=== PATIENT | female | born 1945 | race Caucasian/White ===

== ENCOUNTER 2020-08-08 20:00 | Emergency (ER) | payer MEDICARE, SELFPAY ==
--- NOTE | ~2020-08-08 | XR_ITS ---
EXAMINATION: XR CHEST CLINICAL INFORMATION: SOB.] The past COMPARISON: None TECHNIQUE: Frontal view of the chest was obtained. FINDINGS: The lungs are well-expanded and clear of acute pneumonic process. Heart size and pulmonary vascularity is normal. There is a partial right shoulder arthroplasty XR/XR chest 1V IMPRESSION: No acute cardiopulmonary process seen
[2020-08-08 20:24] VITALS: BP 117/68; PULSE 77; RESP 16; TEMP 36.7; O2SAT 97; BMI 23.9
[2020-08-08 20:51] LABS: COVID-19 Test Negative (Negative)
--- NOTE | 2020-08-08 22:15 | ED_ITS ---
HPI - SOB/Dyspnea General Chief Complaint: Dyspnea Stated Complaint: Sob Time Seen by Provider: 08/08/20 22:09 Source: patient Mode of arrival: ambulatory Limitations: no limitations History of Present Illness HPI Narrative: Patient had COVID in last summer received both COVID vaccine complaining of shortness of breath fatigue feeling level breathing off and on especially for last few days patient was tested for COVID again which was negative patient is saturating 97% at room air patient is an ex-smoker used to use inhaler off and on. No chest pain no fever no chills Related Data Previous Rx's Medication Instructions Recorded albuterol sulfate [ProAir HFA] 2 puff INHALATION Q6H PRN #8.5 g 08/08/20 Allergies Allergy/AdvReac Type Severity Reaction Status Date / Time hydromorphone [From DILAUDID] AdvReac Intermediate HALLUCINATI Unverified 01/11/20 15:53 ONS Review of Systems Review of Systems: Constitutional : No Weight loss, No Fever, No Chills ENT/Mouth : No sore throat, No Rhinorrhea Eyes: No Eye Pain, No Swelling Cardiovascular : No Chest Pain, no palpitations Respiratory : No Cough, No Sputum, + shortness of breath Gastrointestinal : no Nausea, No Vomiting, No Diarrhea, No abdominal Pain, no black stools Genitourinary : No Dysuria, No Urinary Frequency Musculoskeletal : No joint pain, No Myalgias, No Joint Swelling Skin : No Skin Lesions, No rash Neuro : No Weakness, No Numbness, No Dizziness, No Headache Psych : No Anxiety/Panic, No Depression Heme/Lymph: No Bruising, No Lymphadenopathy Endocrine : No Polyuria, No Polydipsia All other systems reviewed and are negative [facility] Past Medical History Medical History Anxiety Depression History of open sigmoidectomy Social History Social History Advance Directives: No Advance Directives Information Provided: No Physical Exam Vital Signs: Vital Signs: Last Vital Signs Temp 98.0 F 08/08/20 20:24 Pulse 77 08/08/20 20:24 Resp 16 08/08/20 20:24 BP 117/68 08/08/20 20:24 Pulse Ox 97 08/08/20 20:24 Body Mass Index 23.9 Appearance: Alert. Oriented X3. No acute distress. Anxious Eyes: Pupils equal, round and reactive to light. ENT: Pharynx normal. Neck: Normal inspection. Neck supple. CVS: Normal heart rate and rhythm. Pulses normal. Respiratory: No respiratory distress. Breath sounds normal. Abdomen: Soft and nontender. Bowel sounds are present, no mass palpable, no CVA tenderness Skin: Skin warm and dry. Normal skin color. Normal skin turgor. Extremities: No lower extremity edema. No calf tenderness Neuro: Oriented X 3. No motor deficit. No sensory deficit. 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 Lab Data Attestation: I reviewed the patient's lab results. Labs: Lab Results 08/08/20 Range/Units 20:26 COVID-19 ([facility]AK) Negative (Negative) COVID-19 Clin Com See Note Discharge Plan Discharge Clinical Impression: Chronic bronchitis Qualifiers: Chronic bronchitis type: simple Qualified Code(s): J41.0 - Simple chronic bronchitis Patient Disposition: Home, Self-Care Instructions: Chronic Bronchitis (ED) Additional Instructions: Use albuterol inhaler as needed every 6 hours for shortness of breath Follow-up with research test engine operator Prescriptions: New albuterol sulfate [ProAir HFA] 90 mcg/actuation HFA aerosol inhaler 2 puff inhalation Q6H PRN (Reason: shortness of breath or wheezing) Qty: 8.5 RF: 0 Referrals: Tree Pham MD [Physician] - 1 week
== END 2020-08-08 23:08 | disposition home or self-care (01) ==
PROVIDERS: Emergency Provider Internal Medicine; PCP Nurse Practitioner Adult Health
DX: J41.0 Simple chronic bronchitis (principal); R06.00 Dyspnea, unspecified; Z86.16 Personal history of COVID-19; Z20.822 Contact with and (suspected) exposure to COVID-19
CPT/HCPCS: 36415; 71045; 87635; 99282; 99283

== ENCOUNTER → 2020-08-20 14:16 | Outpatient (BNVA) | payer MEDICARE, SELFPAY | PROVIDERS: PCP Nurse Practitioner Adult Health; Visit Provider Internal Medicine | DX: R05 Cough (principal); R06.00 Dyspnea, unspecified; B94.8 Sequelae of other specified infectious and parasitic diseases | CPT/HCPCS: 99202 ==

== ENCOUNTER 2020-09-04 07:49 | Outpatient (REF) | payer MEDICARE, SELFPAY ==
--- NOTE | ~2020-09-04 | CT_ITS ---
EXAMINATION: CT CHEST WITHOUT CONTRAST CLINICAL INFORMATION: Sequela of other specified infectious parasitic infections COMPARISON: Previous chest x-rays most recent July 2020 TECHNIQUE: Multidetector volumetric CT imaging of the chest was done. Axial MIP volume rendering provided. Sagittal and coronal reformatted images were obtained. This CT examination was performed using dose optimization techniques as appropriate, variously including the following: *Automated exposure control *Adjustment of mA and/or kV according to patient size (this includes techniques or standardized protocols for targeted exams where dose is matched to indication/reason for exam; i.e. 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 There is a 2 mm peripheral or subpleural right upper lobe nodule along the mediastinal surface axial image 165 series 4. There is endobronchial soft tissue opacification and scattered peribronchial nodules or tree-in-bud appearance in the left lower lobe for example axial image 210 series 4. There is a 3 mm right middle lobe nodule also probably representing endobronchial soft tissue opacification axial image 221 series 4, in the left lower lobe axial image 299 series 4. There is a 2 mm calcified left lower lobe nodule axial image 398 and 4 14 series 4. MEDIASTINUM: The heart does not appear enlarged. There is significant coronary artery calcification. There is no pericardial effusion. The thoracic aorta is normal in caliber. There are no enlarged hilar or mediastinal lymph nodes. PLEURA: There is no pleural effusion. No pleural mass or thickening. AXILLA: No chest wall mass or enlarged axillary lymph nodes are seen. UPPER ABDOMEN: Unremarkable. OSSEOUS STRUCTURES: There are degenerative changes of the spine. CT/CT chest wo con IMPRESSION: No evidence of pneumonia. Small calcified and noncalcified pulmonary nodules. Evidence of mild airways disease, greatest in the left lower lobe. Significant coronary artery calcification.
== END 2020-09-04 07:50 | disposition home or self-care (01) ==
LOC: HO.CT 07:49
PROVIDERS: Visit Provider Internal Medicine
DX: R05 Cough (principal); R06.00 Dyspnea, unspecified; B94.8 Sequelae of other specified infectious and parasitic diseases
CPT/HCPCS: 71250

== ENCOUNTER 2020-09-11 09:55 | Outpatient (REF) | payer MEDICARE, SELFPAY ==
--- NOTE | 2020-09-11 11:06 | PFT_ITS ---
Forced vital capacity FEV1, BDA89-77 are all normal. MVV slightly reduced. After bronchodilator therapy, there is no significant change. Total lung capacity and residual volume normal. Diffusion capacity normal. CONCLUSION: Normal pulmonary function test. No evidence of obstructive or restrictive pulmonary disorder. Denice Manning MD MSB/MODL / [id number]
== END 2020-09-11 09:56 | disposition home or self-care (01) ==
LOC: HO.RESP 09:55
PROVIDERS: PCP Nurse Practitioner Adult Health; Visit Provider Internal Medicine
DX: R05 Cough (principal); R06.00 Dyspnea, unspecified; B94.8 Sequelae of other specified infectious and parasitic diseases
CPT/HCPCS: 94060; 94727; 94729

== ENCOUNTER → 2020-09-18 10:08 | Outpatient (BNVA) | payer MEDICARE, SELFPAY | PROVIDERS: PCP Nurse Practitioner Adult Health; Visit Provider Internal Medicine | DX: B94.8 Sequelae of other specified infectious and parasitic diseases (principal); R06.00 Dyspnea, unspecified; R05 Cough | CPT/HCPCS: 99212 ==

== ENCOUNTER → 2020-10-23 11:00 | Outpatient (BNVA) | payer MEDICARE, SELFPAY | PROVIDERS: PCP Nurse Practitioner Adult Health; Referring Provider Nurse Practitioner Adult Health; Visit Provider Internal Medicine ==

== ENCOUNTER 2020-10-31 06:46 | Outpatient (REF) | payer MEDICARE, SELFPAY ==
[2020-10-31 08:33] LABS: Alanine Aminotransferase 16 U/L (0-31); Albumin Level 4.1 g/dL (3.5-5.0); Alkaline Phosphatase 87 U/L (39-117); Aspartate Amino Transferase 21 U/L (5-31); Bilirubin Direct 0.2 mg/dL (0.0-0.5); Bilirubin Total 0.6 mg/dL (0.0-1.0); Cholesterol 198 mg/dL; HDL Cholesterol 56 mg/dL; LDL Cholesterol Calculated 127 mg/dl; Total Protein 6.2 g/dL (6.5-8.0); Triglycerides 79 mg/dL
== END 2020-10-31 06:47 | disposition home or self-care (01) ==
LOC: HO.LAB 06:46
PROVIDERS: PCP Nurse Practitioner Adult Health; Visit Provider Internal Medicine
DX: I25.10 Atherosclerotic heart disease of native coronary artery without angina pectoris (principal); E78.5 Hyperlipidemia, unspecified
CPT/HCPCS: 36415; 80061; 80076

== ENCOUNTER → 2020-11-13 07:39 | Outpatient (REF) | payer MEDICARE, SELFPAY ==
--- NOTE | ~2020-11-13 | NM_ITS ---
Exercise Myocardial perfusion study Indication: Shortness of breath evaluate for myocardial ischemia Technique: The patient was brought in for an exercise perfusion study on 11/13/2020. Patient performed exercise as per Mika protocol and was injected 25 mCi of sestamibi was given intravenously one target HR was achieved. Images were obtained using the SPECT gamma camera interlaced with the gating device. Images were obtained in supine position. Resting perfusion study was performed on 11/15/2020. Patient was administered 25 mCi of sestamibi intravenously at rest. Images were then obtained in supine position. Images obtained with and without CT attenuation. Total DLP 84 mGy-cm. Images were processed with the software and compared side to side in short axis, horizontal long axis and vertical long axis views. Findings: The stress perfusion study showed both attenuated corrected as well as nonattenuated images show normal uptake of radiotracer in all segments of LV myocardium.. The gated study shows normal LV systolic function with calculated LVEF of 67%. LV cavity is normal in in size. The gated study shows normal systolic wall thickening and contraction of all segments. There is no transient ischemic dilation. Resting study is suboptimal due to intense subdiaphragmatic uptake interfering with inferior wall uptake and shows nonattenuated images show mildly reduced uptake in the apex of the LV myocardium. Attenuation corrected images show moderately reduced uptake in the apex of the LV myocardium. Gating at rest reveals normal systolic wall motion with ejection fraction at 57%. The findings are consistent with normal myocardial perfusion. NM/NM cardiolite stress test Impression: 1. Normal myocardial perfusion 2. Gated LVEF is 67% 3. Transient ischemic dilatation not present Stress EKG is negative for ischemia
--- NOTE | 2020-11-13 07:43 | CA_ITS ---
Transthoracic Echocardiogram Patient (Last, First, Middle): Delicia Coelho E Gender: Female Date of : 1945 Age: 75 Procedure Date: 11/13/2020 Procedure Type: Transthoracic Echocardiogram Location: OP Height: 157.48 cm Weight: 60.78 kg BSA: 1.61 m2 Heart Rate: bpm BP: 100 / 54 mmHg Furniture Dipper: Eddie MD: Omari Suggs MD Vp Product: Floyd Allen MD Symptoms: I25.10 - Atherosclerotic heart disease of [place] coronary... Study Quality: Good ECG Rhythm: Sinus Conclusions: - 1. Normal LV systolic function with impaired relaxation filling pattern 2. Trivial aortic regurgitation 3. Mildly dilated left atrium 4. Normal RV systolic pressure 5. No pericardial effusion Findings Left Ventricle Normal left ventricular size, thickness, and systolic function. The visually estimated ejection fraction is between 55-60%. Spectral Doppler is indicative of an impaired relaxation filling pattern. E/E prime ratio is between 8 and 15 consistent with indeterminate filling pressures. Right Ventricle Normal right ventricular cavity size and systolic function. Atria The left atrium is mildly dilated. There is no evidence of interatrial shunt. The right atrium is normal in size. Aortic Valve Normal aortic valve structure and function. There is no aortic valve stenosis. There is trace (trivial) aortic valve regurgitation. Mitral Valve Normal mitral valve structure and function. There is no mitral valve regurgitation. There is no mitral valve stenosis. Pulmonic Valve The pulmonic valve is likely normal. Tricuspid Valve Normal tricuspid valve structure. There is trace tricuspid valve regurgitation. The right ventricular systolic pressure is normal. Normal right atrial pressure. There is no evidence of pulmonary hypertension. Great Vessels All visible segments of the aorta are normal in size. The pulmonary artery was not well visualized. Venous The inferior vena cava is normal in size and collapses greater than 50% with inspiration. Pericardium/Pleural There is no evidence of pericardial effusion. Prior Study Comparison No prior study available for comparison. Measurements 2D Linear Measurements RVIDd: 3.04 RVIDd Index: 1.89 IVSd: 0.93 0.6-0.9/0.6-1.0 cm LVIDd: 4.61 3.9-5.3/4.2-5.9 cm LVIDd Index: 2.86 2.4-3.2/2.2-3.1 cm/m2 LVIDs: 2.70 2.0-3.6 cm LVPWd: 0.89 0.7-1.1 cm Ao Root: 2.80 2.1-3.5 cm LA Diam: 3.30 2.7-3.8/3.0-4.0 cm LAIDs Index: 2.05 1.5-2.3 cm/m2 LV Mass: 175.49 67-162/88-224 g LV Mass Index: 109.00 43-95/49-115 g/m2 LVOT Diam: 2.00 3.0+(-)1.3 cm 2D Systolic Function EF 4C: 55.50 >55% EF 2C: 50.30 >55% Mitral Valve MV Pk E: 0.67 MV PK A: 0.77 MV Decel Time: 315.00 E/A: 0.90 E'Lateral: 7.83 E'Medial: 6.74 E/E' Med: 10.00 E/E' Lat: 8.60 Aortic Valve AoV Pk Natanael: 1.41 AoV Mn Natanael: 1.06 AoV VTI: 0.35 AoV Pk Grad: 8.00 Aov Mn Grad: 5.00 ITALIA Cont.VTI: 1.99 LVOT LVOT Pk Natanael: 1.06 LVOT Mn Natanael: 0.73 LVOT VTI: 0.22 LVOT Pk Grad: 4.00 LVOT Mn Grad: 3.00 LVOT Diam: 2.00 LVOT Area: 3.14 Diastolic Function MV Pk E: 0.67 MV Pk A: 0.77 E/A: 0.90 E'Medial: 6.74 E/E' Med: 10.00 E' Laterial: 7.83 E/E' Lat: 8.60 Tricuspid Valve TR Pk Natanael: 2.23 TR Pk Grad: 20.00 RA Press: 3.00 RVSP: 23.00 Great Vessels Aorta Ao Root-2D: 2.80 2.0-3.7 cm Ao Asc: 2.90 2.1-3.4 cm Ao Arch: 2.90 Updated in Other Vendor System with Status of Final Floyd Allen MD electronically signed on 11/15/2020 11:36:55 AM with status of Final
--- NOTE | 2020-11-13 08:30 | CA_ITS ---
Acquisition Time: 2020-11-13 08:34:57 Total Exercise Time: 00:06:17 Test Indications: Dyspnea Medications: SERTRALINE LORAZAPAM Protocol: ARA Max HR: 126 BPM 86% of Pred: 146 BPM Max BP: 138/056 mmHG Max Work Load: 7.4 METS Exercise stress test with exercise 6 min 17sec of Ara protocol, without anginal symptoms, with isolated PAC, with normotensive response to exercise, with nonspecific ST abnormality, without EKG changes meeting criteria for ischemia. Nuclear images pending. Test reviewed with Dr Allen. Referred By: Omari Suggs Overread By: GREYSON MELENDEZ
== END ==
LOC: HO.CARD 07:39
PROVIDERS: Visit Provider Internal Medicine
DX: I25.10 Atherosclerotic heart disease of native coronary artery without angina pectoris (principal); R06.02 Shortness of breath; Z87.891 Personal history of nicotine dependence
CPT/HCPCS: 78452; 93005; 93017; 93306; 99202; A9500

== ENCOUNTER → 2020-11-19 13:29 | Outpatient (BNVA) | payer MEDICARE, SELFPAY | PROVIDERS: PCP Nurse Practitioner Adult Health; Visit Provider Internal Medicine | DX: I25.10 Atherosclerotic heart disease of native coronary artery without angina pectoris (principal); I95.9 Hypotension, unspecified; R06.02 Shortness of breath | CPT/HCPCS: 99212 ==

== ENCOUNTER 2020-12-26 10:43 | Outpatient (REF) | payer MEDICARE, SELFPAY ==
[2020-12-26 11:39] LABS: COVID-19 Test Negative (Negative)
== END 2020-12-26 10:44 | disposition home or self-care (01) ==
LOC: HO.LAB 10:43
PROVIDERS: PCP Nurse Practitioner Adult Health; Visit Provider Internal Medicine
DX: Z20.822 Contact with and (suspected) exposure to COVID-19 (principal)
CPT/HCPCS: 36415; 87635; C9803

== ENCOUNTER → 2021-02-19 09:25 | Outpatient (BNVA) | payer MEDICARE, SELFPAY | PROVIDERS: PCP Nurse Practitioner Adult Health; Visit Provider Internal Medicine | DX: I25.10 Atherosclerotic heart disease of native coronary artery without angina pectoris (principal) | CPT/HCPCS: 99212 ==

== ENCOUNTER 2022-01-16 11:00 | Outpatient (RCR) | payer MEDICARE, SELFPAY | END 2022-02-23 10:05 | disposition home or self-care (01) | LOC: HO.PT 11:00 | PROVIDERS: PCP Nurse Practitioner Adult Health; Visit Provider Family Medicine | DX: M54.2 Cervicalgia (principal); M79.18 Myalgia, other site | CPT/HCPCS: 97110; 97112; 97140; 97162; 97530 ==

== ENCOUNTER → 2022-03-10 13:46 | Outpatient (BNVA) | payer MEDICARE, SELFPAY | PROVIDERS: PCP Nurse Practitioner Adult Health; Referring Provider Nurse Practitioner Adult Health; Visit Provider Internal Medicine | DX: I25.10 Atherosclerotic heart disease of native coronary artery without angina pectoris (principal) | CPT/HCPCS: 93005; 99212 ==

== ENCOUNTER 2023-03-16 09:16 | Outpatient (AMB) | payer MEDICARE, SELFPAY ==
--- NOTE | 2023-03-16 09:21 | A.OFFVIS_ITS ---
Intake Vital Signs 03/16/23 09:24 Height 5 ft 2 in BMI Reason not done Patient refused/unable BP 100/58 L Blood Pressure Location Lt brachial Position Sitting Pulse 72 Intake Visit Reasons: 1 year follow up Intake Note: 1 year follow up w. EKG Distribution Driver Required: No Accompanied by: Self / Same As Patient Allergies hydromorphone [From DILAUDID] Adverse Reaction (Intermediate, Verified 03/16/23 09:23) HALLUCINATIONS Medication List - Last Reconciled 03/16/23 by Omari Suggs MD ascorbate calcium (vitamin C) 500 mg PO DAILY aspirin 81 mg PO DAILY cholecalciferol (vitamin D3) 25 mcg PO DAILY estradiol 0.01%(0.1mg/gram) vaginal fluticasone propionate 50 mcg/actuation 2 sprays intranasal DAILY lorazepam 0.5 mg PO DAILY PRN rosuvastatin (Crestor) 20 mg PO DAILY 90 days sertraline 50 mg PO DAILY HPI HPI Comments History of Present Illness Details Delicia returns for follow-up regarding coronary disease. In the past, due to symptoms of shortness of breath after COVID, she underwent chest CT scan that showed coronary artery calcification. Then underwent perfusion imaging was unremarkable. Overall, she states she is feeling fine. No symptoms like angina or shortness of breath or in fact anything cardiac sounding. She is fairly active and can walk and do things without any issues. Never has had angina. [facility] Medical History (Updated 11/19/20 @ 14:12 by Omari Suggs MD) Post-COVID syndrome Dyspnea Cough History of open sigmoidectomy Depression Anxiety Surgical History History of open sigmoidectomy History of shoulder surgery History of knee surgery Family History Father No problems noted. Mother Cardiac disease Patient Tobacco Use Status: Former Tobacco user Years Smoked: 2 Review of Systems Const Denies weakness ENT Denies dizziness Card Denies chest pain, Denies chest pain with activity, Denies syncope, Denies rapid heart rate, Denies pedal edema, Denies edema, Denies leg edema, Denies lightheadedness, Denies palpitations, Denies dyspnea, Denies dyspnea on exertion and Denies orthopnea Resp Denies cough, Denies dyspnea and Denies dyspnea on exertion GI Denies hematochezia and Denies change in stool character Musc Denies abnormal gait, Denies muscle cramps, Denies muscle weakness, Denies numbness, Denies radiating pain into limb and Denies tingling Neuro Denies abnormal gait, Denies dizziness, Denies syncope, Denies numbness, Denies tingling and Denies weakness Endo Denies palpitations Physical Exam Vital Signs: Last Vital Signs Pulse 72 03/16/23 09:24 BP 100/58 L 03/16/23 09:24 Const General: comfortable and no acute distress Orientation/consciousness: patient oriented x3 HEENT Other: Unremarkable Head: Yes normal to inspection Neck Neck: Yes normal visual inspection Chest Chest palpation & inspection: normal inspection of the chest Resp Auscultation: clear to auscultation bilaterally Cardio Palpation: normal PMI Heart sounds: S1 normal heart sound present, S2 normal heart sound present, no gallops, no murmurs and no rubs GI Palpation (GI): Soft to palpation Back/Spine/Pelvis Other: unremarkable Skin General skin exam: no rashes or lesions noted Neuro General: patient oriented x3 Extrem General: Yes normal to inspection Psych Mental Status: mental status grossly normal Office Procedures EKG Details: EKG with sinus rhythm at 72/Min; no significant ST-T changes and otherwise unremarkable[place] [id number], Complete Assessment & Plan Assessment & Plan (1) Atherosclerotic cardiovascular disease: Code(s): I25.10 - Atherosclerotic heart disease of [place] coronary artery without angina pectoris Plan Cardiac studies reviewed. CT chest shows significant coronary artery calcification. Echocardiogram with preserved LVEF, 55-60%, mild diastolic dysfunction with mild left atrial dilatation. Myocardial perfusion imaging study shows normal perfusion. In the exercise component, she was able to exercise for 7.4 Mets without any anginal-type symptoms. Clinically, absolutely no angina. Continue medications for stable CAD. Continue aspirin and statins. Last available LDL cholesterol 60 mg/dL. Improved from prior. Otherwise, stable. Follow-up in 1 year. In the interim, to call with concerns. She is aware. Coding Level of Care Code Est Pt Level 3 (38304) Diagnoses Atherosclerotic cardiovascular disease I25.10 CPT Codes EKG - CPT: 16512-[id number], Complete ([id number])
[2023-03-16 09:24] VITALS: BP 100/58; PULSE 72
== END 2023-03-16 09:40 | disposition home or self-care (01) ==
PROVIDERS: Visit Provider Internal Medicine
DX: I25.10 Atherosclerotic heart disease of native coronary artery without angina pectoris (principal)
CPT/HCPCS: 93010; 99213

== ENCOUNTER → 2023-03-16 09:16 | Outpatient (BNVA) | payer MEDICARE, SELFPAY | PROVIDERS: Visit Provider Internal Medicine | DX: I25.10 Atherosclerotic heart disease of native coronary artery without angina pectoris (principal) | CPT/HCPCS: 93005; 99212 ==

== ENCOUNTER 2024-03-07 08:46 | Outpatient (AMB) | payer MEDICARE, SELFPAY ==
[2024-03-07 08:51] VITALS: BP 104/58; PULSE 76
--- NOTE | 2024-03-07 08:51 | MHC.OFFVIS ---
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 Required: No Accompanied by: Self / Same As Patient Allergies hydromorphone [From DILAUDID] Adverse Reaction (Intermediate, Verified 03/16/23 09:23) HALLUCINATIONS Medication List - Last Reconciled 03/07/24 by Omari Suggs MD ascorbate calcium (vitamin C) 500 mg PO DAILY aspirin 81 mg PO DAILY cholecalciferol (vitamin D3) 25 mcg PO DAILY estradiol 0.01%(0.1mg/gram) vaginal fluticasone propionate 50 mcg/actuation 2 sprays intranasal DAILY lorazepam 0.5 mg PO DAILY PRN rosuvastatin 20 mg PO DAILY sertraline 25 mg PO DAILY HPI Comments Details: Delicia returns for follow-up regarding coronary disease. In the past, due to symptoms of shortness of breath after COVID, she underwent chest CT scan that showed coronary artery calcification. Then underwent perfusion imaging was unremarkable. Clinically, he has got no symptoms. She can walk uphill with no angina or any other concerns. [facility] Medical History (Updated 11/19/20 @ 14:12 by Omari Suggs MD) Post-COVID syndrome Dyspnea Cough History of open sigmoidectomy Depression Anxiety Surgical History History of open sigmoidectomy History of shoulder surgery History of knee surgery Family History Father No problems noted. Mother Cardiac disease Social History (Updated 03/07/24 @ 08:54 by Penny Macdonald CMA) Alcohol intake: current Alcohol intake frequency: holidays/special occasions only Patient Tobacco Use Status: Former Tobacco user Years Smoked: 2 Review of Systems Const Denies chills, Denies fatigue, Denies fever(s), Denies weight gain and Denies weight loss ENT Denies dizziness Card Denies chest pain, Denies leg edema, Denies lightheadedness, Denies palpitations, Denies dyspnea on exertion, Denies orthopnea and Denies other Resp Denies cough and Denies dyspnea on exertion GI Denies hematochezia and Denies change in stool character Musc Denies abnormal gait, Denies muscle weakness, Denies numbness, Denies radiating pain into limb and Denies tingling Neuro Denies abnormal gait, Denies dizziness, Denies numbness and Denies tingling Endo Denies fatigue and Denies palpitations Physical Exam Vital Signs: Last Vital Signs Pulse 76 03/07/24 08:51 BP 104/58 L 03/07/24 08:51 Const General: comfortable and no acute distress Orientation/consciousness: patient oriented x3 HEENT Other: Unremarkable Head: Yes normal to inspection Neck Neck: Yes normal visual inspection Chest Chest palpation & inspection: normal inspection of the chest Resp Auscultation: clear to auscultation bilaterally Cardio Palpation: normal PMI Heart sounds: S1 normal heart sound present, S2 normal heart sound present, no gallops, no murmurs and no rubs GI Palpation (GI): Soft to palpation Back/Spine/Pelvis Other: unremarkable Skin General skin exam: no rashes or lesions noted Neuro General: patient oriented x3 Extrem General: Yes normal to inspection Psych Mental Status: mental status grossly normal Office Procedures EKG Details: EKG with underlying sinus rhythm at 76/Min; no significant ST-T changes; [place]. [id number], Complete Assessment & Plan Assessment & Plan (1) Atherosclerotic cardiovascular disease: Code(s): I25.10 - Atherosclerotic heart disease of [place] coronary artery without angina pectoris Category: Medical Plan Cardiac studies reviewed. CT chest 2020 shows significant coronary artery calcification. Echocardiogram with preserved LVEF, 55-60%, mild diastolic dysfunction with mild left atrial dilatation. Myocardial perfusion imaging study shows normal perfusion. In the exercise component, she was able to exercise for 7.4 Mets without any anginal-type symptoms. Overall, continue medications for stable coronary disease. Continue aspirin and statins. Last LDL 60 mg/dL. We can contact PCP for more up-to-date labs. Follow-up in 1 year. In the interim, advised her to contact us if any symptoms like angina. Coding Level of Care Code Est Pt Level 3 (76540) Diagnoses Atherosclerotic cardiovascular disease I25.10 CPT Codes EKG - CPT: 55041-[id number], Complete ([id number])
== END 2024-03-07 09:15 | disposition home or self-care (01) ==
PROVIDERS: PCP Nurse Practitioner Adult Health; Visit Provider Internal Medicine
DX: I25.10 Atherosclerotic heart disease of native coronary artery without angina pectoris (principal)
CPT/HCPCS: 93010; 99213

== ENCOUNTER → 2024-03-07 08:46 | Outpatient (BNVA) | payer MEDICARE, SELFPAY | PROVIDERS: PCP Nurse Practitioner Adult Health; Visit Provider Internal Medicine | DX: I25.10 Atherosclerotic heart disease of native coronary artery without angina pectoris (principal); Z87.891 Personal history of nicotine dependence | CPT/HCPCS: 93005; 99212 ==

== ENCOUNTER 2024-09-30 19:29 | Emergency (ER) | payer MEDICARE, SELFPAY ==
--- NOTE | ~2024-09-30 | XR_ITS ---
CLINICAL HISTORY: L hand pain Three views of the left hand. COMPARISON: None FINDINGS: Distal radius and ulna appear intact. Carpal bones appear intact. Degenerative changes of the 1st CMC joint with joint space narrowing and osteophytes. Metacarpals and phalanges appear intact. No radiopaque foreign body. IMPRESSION: 1. No radiographic evidence of acute injury to the left hand. This document has been electronically signed by: Parvez Silverio MD on 09/30/2024 21:03:18
--- NOTE | ~2024-09-30 | XR_ITS ---
CLINICAL HISTORY: L wrist pain Four views of the left wrist. COMPARISON: None FINDINGS: Distal radius and ulna appear intact. Carpal and metacarpals appear intact and normal in alignment. Degenerative changes of the 1st CMC joint with joint space narrowing and small osteophytes. IMPRESSION: 1. No radiographic evidence of acute injury to the left wrist. This document has been electronically signed by: Parvez Silverio MD on 09/30/2024 21:02:48
[2024-09-30 19:40] VITALS: BP 134/71; PULSE 71; RESP 16; TEMP 36.9; O2SAT 97; BMI 23.7
--- NOTE | 2024-09-30 19:40 | ED.UPPEXIN ---
HPI - Extremity Injury (Upper) General Chief Complaint: Extremity Injury, Upper Stated Complaint: left arm inj Related Data Home Medications ?Medication ?Instructions ?Recorded ?Confirmed estradiol 0.01% (0.1 mg/gram) vaginal 08/20/20 03/07/24 vaginal cream fluticasone propionate 50 2 spray intranasal DAILY 08/20/20 03/07/24 mcg/actuation nasal spray,suspension ascorbate calcium (vitamin C) 500 500 mg PO DAILY 09/18/20 03/07/24 mg tablet cholecalciferol (vitamin D3) 25 25 mcg PO DAILY 09/18/20 03/07/24 mcg (1,000 unit) capsule lorazepam 0.5 mg tablet 0.5 mg PO DAILY PRN 09/18/20 03/07/24 sertraline 50 mg tablet 25 mg PO DAILY 03/07/24 03/07/24 Previous Rx's ?Medication ?Instructions ?Recorded rosuvastatin 20 mg tablet 20 mg PO DAILY #90 tabs 07/25/24 aspirin 81 mg tablet,delayed 81 mg PO DAILY #90 tabs 08/10/24 release Allergies Allergy/AdvReac Type Severity Reaction Status Date / Time hydromorphone [From DILAUDID] AdvReac Intermediate HALLUCINATI Verified 09/30/24 19:41 ONS [facility] Past Medical History Medical History (Updated 11/19/20 @ 14:12 by Omari Suggs MD) Post-COVID syndrome Dyspnea Cough History of open sigmoidectomy Depression Anxiety Surgical History History of open sigmoidectomy History of shoulder surgery History of knee surgery Family History Family History Father No problems noted. Mother Cardiac disease Social History Social History (Updated 03/07/24 @ 08:54 by Penny Macdonald CMA) Alcohol intake: current Alcohol intake frequency: holidays/special occasions only Patient Tobacco Use Status: Former Tobacco user Years Smoked: 2 Advance Directives: No Advance Directives Information Provided: No Do you have a plan to hurt others: No Plan Physical Exam Vital Signs: Vital Signs: Last Vital Signs Temp 98.4 F 09/30/24 19:40 Pulse 71 09/30/24 19:40 Resp 16 09/30/24 19:40 BP 134/71 09/30/24 19:40 Pulse Ox 97 09/30/24 19:40 O2 Del Method Room Air 09/30/24 19:40 BMI result Body Mass Index 23.7 Course Course Course Narrative: This is a Rapid Medical Exam performed in triage by Saige Guzman PA-C. Full HPI, ROS and PE to be performed by primary ED provider. 79 yo F presenting to the ED c/o L wrist pain radiating up LUE x1hr s/p doing house chores and believes she ?banged on something. Denies CP PE: +L wrist and hand (1-2nd digit) ttp. +snuffbox ttp. NV intact Plan: XR, EKG Discharge Plan Discharge Patient Disposition: Left W/O Completing Treatment Prescriptions: No Action rosuvastatin 20 mg tablet 20 mg PO DAILY Qty: 90 3RF aspirin 81 mg tablet,delayed release (DR/EC) 81 mg PO DAILY Qty: 90 3RF fluticasone propionate 50 mcg/actuation spray,suspension 2 spray intranasal DAILY estradiol 0.01 % (0.1 mg/gram) cream vaginal lorazepam 0.5 mg tablet 0.5 mg PO DAILY PRN sertraline 50 mg tablet 25 mg PO DAILY cholecalciferol (vitamin D3) 25 mcg (1,000 unit) capsule 25 mcg PO DAILY ascorbate calcium (vitamin C) 500 mg tablet 500 mg PO DAILY Discharge Date/Time: 09/30/24 22:25
--- NOTE | 2024-09-30 19:41 | ECG_ITS ---
Test Reason : LEFT ARM PAIN Blood Pressure : */* mmHG Vent. Rate : 64 BPM Atrial Rate : 64 BPM P-R Int : 114 ms QRS Dur : 104 ms QT Int : 424 ms P-R-T Axes : 49 2 32 degrees QTcB Int : 437 ms Normal sinus rhythm Normal ECG When compared with ECG of 16-Nov-2019 10:30, No significant change was found Referred By: Saige Guzman Electronically Signed By: AUGUST HOLLAND
--- NOTE | 2024-09-30 22:03 | PC.NURSE ---
pt reported she would like to leave d/t wait time. pt requested to know xray results. educated pt we can't give estimated wait time/results of imaging, attempted to have pt wait, offered tylenol. pt requested to speak to grab jack worker. Aimee MORAES notified.
--- NOTE | 2024-09-30 22:09 | PC.NURSE ---
fisher scallop to WR to speak with patient per her request. Pt was found seated in black chair infront of triage, awake, alert and without distress noted. The pt was inquiring as to when she would be brought back and seen as she is getting tired and needs to ensure she can drive home safely. This RN attempted to explain to the patien the bedding process and inability for this RN to determine the length of time it would take for her to be assessed. This RN offered to bring the patient back to a room which she declined again stating it was getting late, she was tired and concerned about being able to drive home safely. This RN also offered to have registration help get the patient set up with the patient portal which would allow [facility] to obtain[facility] but she declined. Pt asked if it would be better to come back at a specific time and this RN made her aware that the times and census fluctuate day to day however if she would like she is more than welcome to return at her earliest convience. Pt was observed to independenlty ambulate out of the ed with even and steady gait.
== END 2024-09-30 22:25 | disposition left against medical advice (07) ==
PROVIDERS: Emergency Provider Internal Medicine
DX: M25.532 Pain in left wrist (principal); M79.602 Pain in left arm
CPT/HCPCS: 73110; 73130; 93005; 99283

== ENCOUNTER → 2024-09-30 19:41 | Outpatient (BNV) | payer MEDICARE, SELFPAY | PROVIDERS: Visit Provider Radiology Diagnostic Radiology | DX: M18.12 Unilateral primary osteoarthritis of first carpometacarpal joint, left hand (principal); M25.532 Pain in left wrist | CPT/HCPCS: 73110; 73130 ==

== ENCOUNTER → 2024-09-30 19:41 | Outpatient (BNV) | payer MEDICARE, SELFPAY | PROVIDERS: Emergency Provider Internal Medicine; Visit Provider Internal Medicine | DX: M79.602 Pain in left arm (principal) | CPT/HCPCS: 93010 ==